=== PATIENT | female | born 2000 | race Caucasian/White ===

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

== ENCOUNTER 2022-12-16 20:25 | Emergency (ER) | payer MEDICAID, SELFPAY ==
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
[2022-12-16 20:28] VITALS: BP 125/79; PULSE 104; RESP 16; TEMP 36.6; O2SAT 95; BMI 25.6
[2022-12-16] MEDS: Ibuprofen 600 MG TABLET PO (21:02)
[2022-12-16] MEDS: oxyCODONE HCl Immed Release 5 MG TABLET PO (21:02)
[2022-12-16] MEDS: Silver Sulfadiazine 1 % Cream 20 GM TUBE 1 APPL TOPICAL (21:07)
--- NOTE | 2022-12-16 21:30 | PC.NURSE ---
Pt ca&ox4, no signs of distress. Pt speaking on the phone sitting in the chair. Per pt meds administered for pain are beginning to work. Plan of care ongoing.
== END 2022-12-16 21:32 | disposition home or self-care (01) ==
PROVIDERS: Emergency Provider Emergency Medicine; PCP Pediatrics
DX: T23.201A Burn of second degree of right hand, unspecified site, initial encounter (principal); T31.0 Burns involving less than 10% of body surface; X12.XXXA Contact with other hot fluids, initial encounter; Y93.9 Activity, unspecified; Y92.9 Unspecified place or not applicable; Y99.9 Unspecified external cause status
CPT/HCPCS: 16025; 99283

== ENCOUNTER 2023-01-27 | Outpatient (REF) | payer MEDICAID, SELFPAY ==
[2023-01-28 02:03] LABS: CT PCR NOT DETECTED (Not Detect.); NG PCR NOT DETECTED (Not Detect.)
[2023-01-28 15:06] LABS: BV Int Neg Control Negative (Negative); BV Int Pos Control Positive (Positive)
== END 2023-01-27 00:01 | disposition home or self-care (01) ==
LOC: HO.HHCLNP
PROVIDERS: Visit Provider Advanced Practice Midwife
DX: Z12.4 Encounter for screening for malignant neoplasm of cervix (principal); Z11.3 Encounter for screening for infections with a predominantly sexual mode of transmission; N76.0 Acute vaginitis; B96.89 Other specified bacterial agents as the cause of diseases classified elsewhere
CPT/HCPCS: 0353U; 87480; 87510; 87660; 88142